=== PATIENT | female | born 1975 | race Caucasian/White ===

== ENCOUNTER → 2023-01-17 10:42 | Outpatient (BNVA) | payer OTHER, SELFPAY | PROVIDERS: PCP Family Medicine Adult Medicine; Visit Provider Nurse Practitioner Family | DX: N39.0 Urinary tract infection, site not specified (principal) | CPT/HCPCS: 81000; 87086 ==

== ENCOUNTER → 2023-12-10 11:55 | Outpatient (BNVA) | payer OTHER, SELFPAY | PROVIDERS: PCP Family Medicine Adult Medicine; Visit Provider Nurse Practitioner | DX: R19.7 Diarrhea, unspecified (principal) | CPT/HCPCS: 87045; 87177; 87209; 87427; 87449 ==

== ENCOUNTER → 2024-10-24 10:28 | Outpatient (BNVA) | payer OTHER, SELFPAY | PROVIDERS: PCP Family Medicine; Visit Provider Family Medicine | DX: I10 Essential (primary) hypertension (principal); N95.1 Menopausal and female climacteric states; F51.04 Psychophysiologic insomnia; R25.2 Cramp and spasm | CPT/HCPCS: 80053; 83735; 84439; 84443; 85025 ==

== ENCOUNTER → 2024-11-03 09:02 | Outpatient (BNVA) | payer OTHER, SELFPAY | PROVIDERS: PCP Family Medicine; Visit Provider Student in an Organized Health Care Education/Training Program | DX: Z12.11 Encounter for screening for malignant neoplasm of colon (principal) | CPT/HCPCS: 99204 ==

== ENCOUNTER 2024-11-21 06:53 | Day surgery (SDC) | payer OTHER, SELFPAY ==
[2024-11-21 07:18] VITALS: BP 208/103; PULSE 85; RESP 18; TEMP 36.2; O2SAT 99; BMI 29.5
[2024-11-21 08:01] LABS: OR HCG Qualitative Urine Negative (Negative)
--- NOTE | 2024-11-21 08:07 | P.ANESASSM_ITS ---
Pre-Anesthetic Assessment Height/Weight: Height 4 ft 11 in Weight 146 lb Temp Pulse Resp BP Pulse Ox O2 Del Method 97.1 F L 85 18 208/103 99 Room Air 11/21/24 07:18 11/21/24 07:18 11/21/24 07:18 11/21/24 07:18 11/21/24 07:18 11/21/24 07:18 Preop Diagnosis: Screening colonoscopy Operation Date: 11/21/24 08:15 Proposed Procedures p Colonoscopy 22302 G0105 Z12.11(Not Applicable) - Jones Cornell MD Was Beta Vivienne taken within 24 hours: Yes Was Clonidine taken within 24 hours: N/A Last intake: Intake Last Liquid Date 11/20/24 Last Liquid Time 20:00 Last Solid Date 11/19/24 Last Solid Time 20:00 Social No alcohol and No tobacco Exam alert, oriented x 3, clear to auscultation bilaterally and regular rate & rhythm Airway Submandibular: within normal limits Cervical ROM: within normal limits Mallampati: Class II Dentition: full Anesthetic Plan ASA status: 3 Anesthesia: MAC Other: No prior issues with anesthesia Completed bowel prep History of hypertension on nebivolol and amlodipine. Preop BP 208/103. Will recheck prior to procedure Labs from September reviewed and acceptable for procedure Denies any pulmonary issues METs greater than 4 Plan for MAC anesthesia Medications/Allergies Home Medications ?Medication ?Instructions ?Recorded ?Confirmed ?Last Taken ?Type amlodipine 10 mg tablet 10 mg PO DAILY hypertension #90 09/20/24 11/15/24 11/14/24 Rx tabs nebivolol 5 mg tablet 10 mg (2 x 5 mg) PO DAILY Hi gh 09/20/24 11/15/24 11/15/24 Rx blood pressure #180 tabs estradiol 0.05 mg/24 hr semiweekly 1 patch transdermal .twice weekly 10/25/24 11/15/24 11/15/24 Rx transdermal patch (Candy) #8 ea progesterone micronized 200 mg 200 mg PO .qpm #90 caps 10/25/24 11/15/24 11/14/24 Rx capsule Allergies Allergy/AdvReac Type Severity Reaction Status Date / Time No Known Allergies Allergy Verified 11/15/24 09:20 Current Medications Generic Name Dose Route Start Last Admin Trade Name Freq PRN Reason Stop Dose Admin Sodium Chloride 1,000 mls @ 15 mls/hr 11/21/24 07:01 11/21/24 07:27 Sodium Chloride 0.9% IV 11/22/24 07:00 15 mls/hr .Q24H PRN Administration COLONOSCOPY FLUIDS PFSH Anesthesia Medical History Leg cramps Perimenopausal vasomotor symptoms Perimenopause Chronic insomnia Seasonal allergic rhinitis due to pollen Bilateral hearing loss due to cerumen impaction Situational stress Hypertension Surgical History No pertinent past surgical history Family History Father Heart disease Mother No problems noted. 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
--- NOTE | 2024-11-21 08:19 | W.PM.OPSUD ---
Surgery/Procedure H&P Update DATE OF PROCEDURE: November 21, 2024 DATE H&P PERFORMED: 11/03/24 H&P UPDATE INFORMATION: I have reviewed H&P completed within last 30 days, I have examined patient prior to procedure and No changes to prior documentation PREOP DIAGNOSIS: Screening colonoscopy PLANNED PROCEDURE: Operation Date: 11/21/24 08:15 Proposed Procedures p Colonoscopy 34769 G0105 Z12.11(Not Applicable) - Jones Cornell MD
--- NOTE | 2024-11-21 08:36 | PC.NURSE ---
CECUM 0830
[2024-11-21 08:37] VITALS: BP 105/69; PULSE 71; RESP 16; TEMP 36.9; O2SAT 100
[2024-11-21 08:49] VITALS: BP 128/86; PULSE 75; RESP 16; O2SAT 99
--- NOTE | 2024-11-21 09:09 | ANE.PACU2 ---
Inpatient post-anesthesia follow up: Airway intact: Yes Vital signs: Temperature 98.4 F Pulse Rate 75 Respiratory Rate 16 Blood Pressure 128/86 Pulse Oximetry 99 Oxygen Delivery Me thod Room Air Oxygen Flow Rate 6 Fraction of Inspir ed Oxygen Hydration adequate: Yes Nausea and vomiting: No Pain level: 1 Mental status: Baseline
== END 2024-11-21 09:09 | disposition home or self-care (01) ==
PROVIDERS: PCP Family Medicine; Visit Provider Student in an Organized Health Care Education/Training Program
PROC: 0DJD8ZZ Inspection of Lower Intestinal Tract, Via Natural or Artificial Opening Endoscopic (ICD-10-PCS; CPT 45378; principal; 2024-11-21 08:15)
DX: Z12.11 Encounter for screening for malignant neoplasm of colon (principal); D12.6 Benign neoplasm of colon, unspecified; K64.4 Residual hemorrhoidal skin tags; I10 Essential (primary) hypertension
CPT/HCPCS: 45380; 45385; 81025; 88305; J0360; J2704; J7030

== ENCOUNTER → 2024-12-04 09:09 | Outpatient (BNVA) | payer OTHER, SELFPAY | PROVIDERS: PCP Family Medicine; Visit Provider Student in an Organized Health Care Education/Training Program | DX: Z09 Encounter for follow-up examination after completed treatment for conditions other than malignant neoplasm (principal) | CPT/HCPCS: 99213 ==

== ENCOUNTER → 2024-12-11 14:11 | Outpatient (BNVA) | payer OTHER, SELFPAY | PROVIDERS: PCP Family Medicine; Visit Provider Family Medicine | DX: I10 Essential (primary) hypertension (principal); R73.01 Impaired fasting glucose | CPT/HCPCS: 80061; 83036 ==